=== PATIENT | female | born 1950 | race Caucasian/White ===

== ENCOUNTER 2019-11-02 09:06 | Outpatient (CLI) | payer MEDICARE, OTHER ==
--- NOTE | 2019-11-02 15:20 | NM ---
NUCLEAR MEDICINE BRAIN IMAGING: HISTORY: Other abnormalities of gait and mobility TECHNIQUE: A Ricardo scan with axial tomographic images of the brain was obtained 3 hours following the intravenous administration of 4.5mCi I-123 Ioflupane. The patient was pretreated with 130 mg of oral potassium iodide 1 hour prior to the injection. FINDINGS: There is normal symmetric uptake in the striata bilaterally, demonstrating symmetric, crescent-shaped focal regions of activity mirrored about the median plane. IMPRESSION: Normal exam.
== END 2019-11-02 09:07 | disposition home or self-care (01) ==
LOC: NM 09:06
PROVIDERS: ATTEND Psychiatry & Neurology Neurology
DX: R26.89 Other abnormalities of gait and mobility (principal); R25.1 Tremor, unspecified; Z86.69 Personal history of other diseases of the nervous system and sense organs; Z82.0 Family history of epilepsy and other diseases of the nervous system
CPT/HCPCS: 78803; A9584